=== PATIENT | male | born 1955 | race Caucasian/White ===

== ENCOUNTER 2017-09-29 18:34 | Emergency (ER) | payer MEDICAID ==
[~2017-09-29] VITALS: Ht 172.7 cm; Wt 103.5 kg
[~2017-09-29 18:34] MED LIST: NO HOME MEDS
[2017-09-29] MEDS ORDERED: BUPIVAcaine/PF 2.5 mg/ml (0.25%) 30ml vial IJ ONE (19:15)
[2017-09-29] MEDS ORDERED: TETanus/Pertussis (Acell)/Diphther VAC/PF (Tdap-Adult) 0.5ml syringe IM ONE (19:15)
[2017-09-29] MEDS ORDERED: DOXY100C2 PO (20:16)
[2017-09-29 21:14] VITALS: BP 161/83
== END 2017-09-29 21:19 | disposition home or self-care (01) ==
LOC: ER 18:34
DX: L02.415 Cutaneous abscess of right lower limb (principal); I10 Essential (primary) hypertension; F15.10 Other stimulant abuse, uncomplicated; Z90.49 Acquired absence of other specified parts of digestive tract
CPT/HCPCS: 10060; 90471; 90715; 99283; A6266; A6449; J3490

== ENCOUNTER 2018-07-02 15:33 | Emergency (ER) | payer MEDICAID ==
[~2018-07-02] VITALS: Ht 172.7 cm; Wt 97.0 kg
[2018-07-02 15:38] VITALS: BP 166/95
[2018-07-02] MEDS ORDERED: iohexol 300mg/ml 100ml inj. ONE (17:28)
== END 2018-07-02 18:50 | disposition home or self-care (01) ==
LOC: ER 15:34
DX: R22.1 Localized swelling, mass and lump, neck (principal); I10 Essential (primary) hypertension; F15.90 Other stimulant use, unspecified, uncomplicated; Z87.442 Personal history of urinary calculi; Z90.49 Acquired absence of other specified parts of digestive tract
CPT/HCPCS: 70491; 99284; Q9967

== ENCOUNTER 2018-07-30 15:21 | Emergency (ER) | payer MEDICAID ==
[~2018-07-30] VITALS: Ht 172.7 cm; Wt 240.0 kg
[2018-07-30 15:43] VITALS: BP 11/74
[2018-07-30] MEDS ORDERED: TRAM50TA2 PO (17:31)
[2018-07-30] MEDS ORDERED: NAPR-56 PO (17:31)
== END 2018-07-30 17:39 | disposition home or self-care (01) ==
LOC: ER 15:21
DX: M25.561 Pain in right knee (principal); R60.0 Localized edema; M79.604 Pain in right leg; M79.89 Other specified soft tissue disorders; F15.90 Other stimulant use, unspecified, uncomplicated; I10 Essential (primary) hypertension; Z87.442 Personal history of urinary calculi; Z90.49 Acquired absence of other specified parts of digestive tract; X50.1XXA Overexertion from prolonged static or awkward postures, initial encounter; Y93.89 Activity, other specified; Y92.89 Other specified places as the place of occurrence of the external cause; Y99.9 Unspecified external cause status
CPT/HCPCS: 73590; 93971; 99284

== ENCOUNTER 2018-09-27 06:39 | Day surgery (SDC) | payer MEDICAID ==
[~2018-09-27] VITALS: Ht 172.7 cm; Wt 113.4 kg
[2018-09-27] MEDS ORDERED: LIDOcaine 1% 30ml preserv. free vial IJ STA (06:56)
[2018-09-27 07:26] VITALS: BP 162/102
[2018-09-27] MEDS ORDERED: FLO0.4C PO (08:41)
[2018-09-27] MEDS ORDERED: HYDR12.5 PO (08:42)
[2018-09-27] MEDS ORDERED: LISI10TA4 PO (08:44)
[2018-09-27] MEDS ORDERED: NAPR-56 PO (08:44)
[2018-09-27 08:58] VITALS: BP 156/96
[2018-09-27] MEDS ORDERED: fentaNYL/PF 50MCG/1 ML 2ML syringe IV PRN (09:00)
[2018-09-27] MEDS ORDERED: LIDOcaine 1%/PF 5ML 10 MG/ML VIAL SQ ONE (09:00)
[2018-09-27] MEDS ORDERED: midazolam 2 mg/2 ml injection IV PRN (09:00)
[2018-09-27 09:39] VITALS: BP 148/88
[2018-09-27] MEDS ORDERED: LIDOcaine 1%/PF 5ML 10 MG/ML VIAL ONE (09:46)
[2018-09-27 10:30] VITALS: BP 165/98
== END 2018-09-27 10:45 | disposition home or self-care (01) ==
LOC: SSTAY O 06:39
PROVIDERS: ATTEND Radiology Vascular & Interventional Radiology
DX: R22.1 Localized swelling, mass and lump, neck (principal); I10 Essential (primary) hypertension; Z87.891 Personal history of nicotine dependence; M19.90 Unspecified osteoarthritis, unspecified site; Z87.442 Personal history of urinary calculi; Z98.890 Other specified postprocedural states; Z86.19 Personal history of other infectious and parasitic diseases; F43.10 Post-traumatic stress disorder, unspecified; Z82.49 Family history of ischemic heart disease and other diseases of the circulatory system
CPT/HCPCS: 21550; 87070; J2001; J3490; 20206; 77012

== ENCOUNTER 2019-02-08 08:33 | Day surgery (SDC) | payer MEDICAID ==
[~2019-02-08] VITALS: Ht 172.7 cm; Wt 104.3 kg
[2019-02-08] VITALS (7 sets, daily range): BP systolic 99–144; BP diastolic 67–92
[~2019-02-08 08:33] MED LIST changes: +FLO0.4C PO; +HYDR12.5 PO; +LISI10TA4 PO; +NAPR-56 PO; -NO HOME MEDS
[2019-02-08] MEDS ORDERED: zinc oxide ointment 30gm tube TP PRN (08:50)
[2019-02-08] MEDS ORDERED: FLO0.4C PO (08:56)
[2019-02-08] MEDS ORDERED: OMEP40CA13 PO (08:56)
[2019-02-08] MEDS ORDERED: HYDR-4353 PO (08:56)
[2019-02-08] MEDS ORDERED: LISI-600 PO (08:56)
[2019-02-08] MEDS ORDERED: HYDR12.5 PO (08:56)
[2019-02-08] MEDS ORDERED: cefazolin/dext.iso 2gm/100ml 100 ML IV ONE (09:02)
[2019-02-08] MEDS ORDERED: normal saline 1000ml 1,000 ML IV SCH (09:05)
[2019-02-08 09:25] LABS: BASOPHILS # (AUTO) 0.1 X10'3 (0-0.2); EOSINOPHILS # (AUTO) 0.1 X10'3 (0-0.9); HEMOGLOBIN 13.4 g/dl (14.0-17.9); NEUTROPHILS # (AUTO) 3.9 X10'3 (1.8-7.7); WHITE BLOOD COUNT 6.4 X10'3 (4.5-11.0)
[2019-02-08 09:27] LABS: BASOPHILS % (AUTO) 1.9 % (0-1); EOSINOPHILS % (AUTO) 1.7 % (0-6); HEMATOCRIT 38.4 % (42.0-52.0); LYMPHOCYTES # (AUTO) 1.4 X10'3 (1.1-4.8); LYMPHOCYTES % (AUTO) 21.8 % (21-51); MEAN CORPUSCULAR HEMOGLOBIN 29.8 PG (27.0-31.0); MONOCYTES # (AUTO) 0.8 X10'3 (0-0.9); MONOCYTES % (AUTO) 13.1 % (2-12); NEUTROPHILS % (AUTO) 61.5 % (42-75); PLATELET COUNT 166 X10'3 (140-440); RED BLOOD COUNT 4.51 X10'6 (4.70-6.10); RED CELL DISTRIBUTION WIDTH 14.6 % (11.5-14.5)
[2019-02-08 09:38] LABS: ALBUMIN 2.8 G/DL (3.4-5.0); ANION GAP 8 (8-16); BLOOD UREA NITROGEN 25 MG/DL (7-18); BUN/CREATININE RATIO 26.9 (5.4-32.0); CALCIUM 8.4 MG/DL (8.5-10.1); CHLORIDE 104 MMOL/L (99-107); CREATININE 0.93 MG/DL (0.60-1.10); GLUCOSE 103 MG/DL (70-104); POTASSIUM 3.6 MMOL/L (3.5-5.1); SODIUM 139 MMOL/L (135-145); TOTAL CARBON DIOXIDE 26.7 MMOL/L (24-32); eGFR 82 ML/MIN
[2019-02-08] MEDS ORDERED: fentaNYL/PF 50MCG/1 ML 2ML syringe ONE (10:44)
[2019-02-08] MEDS ORDERED: midazolam 2 mg/2 ml injection ONE (10:44)
[2019-02-08] MEDS ORDERED: glucagon, human recombinant 1mg kit ONE (10:44)
[2019-02-08] MEDS ORDERED: LIDOcaine 1%/PF 5ML 10 MG/ML VIAL ONE (10:44)
[2019-02-08] MEDS ORDERED: iohexol 300 MG/1 ML 50ml polymer ONE (11:15)
[2019-02-08] MEDS ORDERED: HYDROmorphone inj. 0.5 MG/0.5 ML DISP.SYRIN IV ONE (13:10)
== END 2019-02-08 14:32 | disposition home or self-care (01) ==
LOC: SSTAY O 08:33
PROVIDERS: ATTEND Radiology Diagnostic Radiology
DX: C01 Malignant neoplasm of base of tongue (principal); I10 Essential (primary) hypertension; Z87.442 Personal history of urinary calculi; Z79.899 Other long term (current) drug therapy
CPT/HCPCS: 36415; 49440; 80048; 85025; 85610; 99152; 99153; C1713; J1170; J1610; J2250; J3010; J7030; Q9967; B4087

== ENCOUNTER 2021-11-24 12:30 | Emergency (ER) | payer MEDICARE, MEDICAID ==
[~2021-11-24] VITALS: Ht 172.7 cm; Wt 90.9 kg
[~2021-11-24 12:30] MED LIST changes: +HYDR-4353 PO; -LISI10TA4 PO; +LISI20TA28 PO; -NAPR-56 PO; +OMEP40CA21 PO
[2021-11-24 13:29] VITALS: BP 136/93
[2021-11-24 14:04] LABS: BASOPHILS # (AUTO) 0.1 X10'3 (0-0.2); BASOPHILS % (AUTO) 0.9 % (0-1); EOSINOPHILS # (AUTO) 0.3 X10'3 (0-0.9); EOSINOPHILS % (AUTO) 3.2 % (0-6); HEMATOCRIT 43.5 % (42.0-52.0); LYMPHOCYTES # (AUTO) 1.1 X10'3 (1.1-4.8); MEAN CORPUSCULAR HEMOGLOBIN 29.7 PG (27.0-31.0); MEAN CORPUSCULAR HGB CONC 34.4 g/dL (33.0-36.5); MEAN CORPUSCULAR VOLUME 86.3 FL (78-98); MEAN PLATELET VOLUME 9.6 FL (7.4-10.4); MONOCYTES # (AUTO) 0.7 X10'3 (0-0.9); MONOCYTES % (AUTO) 9.4 % (2-12); NEUTROPHILS # (AUTO) 5.6 X10'3 (1.8-7.7); NEUTROPHILS % (AUTO) 72.5 % (42-75); PLATELET COUNT 258 X10'3 (140-440); RED BLOOD COUNT 5.04 X10'6 (4.70-6.10); RED CELL DISTRIBUTION WIDTH 14.3 % (11.5-14.5); WHITE BLOOD COUNT 7.8 X10'3 (4.5-11.0)
[2021-11-24 14:21] LABS: ALANINE AMINOTRANSFERASE 43 U/L (12-78); ALBUMIN 3.3 G/DL (3.4-5.0); ALBUMIN/GLOBULIN RATIO 0.7 (1.1-1.5); ALKALINE PHOSPHATASE 58 IU/L (46-116); ANION GAP 12 (8-16); ASPARTATE AMINO TRANSFERASE 30 U/L (10-37); BILIRUBIN,TOTAL 0.8 MG/DL (0.1-1.0); BLOOD UREA NITROGEN 21 MG/DL (7-18); BUN/CREATININE RATIO 20.2 (5.4-32.0); CALCIUM 9.7 MG/DL (8.5-10.1); CHLORIDE 101 MMOL/L (99-107); CREATININE 1.04 MG/DL (0.60-1.10); GLUCOSE 143 MG/DL (70-104); LIPASE 100 U/L (73-393); SODIUM 137 MMOL/L (135-145); TOTAL CARBON DIOXIDE 24.4 MMOL/L (24-32); TOTAL PROTEIN 7.9 G/DL (6.4-8.2); eGFR 72 ML/MIN
== END 2021-11-24 19:29 | disposition left against medical advice (07) ==
LOC: ER 12:31
DX: R10.30 Lower abdominal pain, unspecified (principal); Z53.21 Procedure and treatment not carried out due to patient leaving prior to being seen by health care provider
CPT/HCPCS: 36415; 80053; 83690; 85025